=== PATIENT | female | born 1965 | race Caucasian/White ===

== ENCOUNTER → 2018-04-05 | Outpatient (CLI) | payer OTHER ==
[~2018-04-05] MED LIST: HYDROCODON-ACE1 EAC7 PO; LORTAB 5 MG/5001 TAB PO; LOVENOX SQ; NOHOMEMEDICATIONS; PERCOCET 5-3251 EACH PO; PHENERGAN 25 MG25 MG PO; PHENERGAN25 MG RE; XANAX 0.5 MG0.5 M1 PO
== END ==
LOC: ULTRA 08:22
DX: N28.89 Other specified disorders of kidney and ureter (principal); Z85.528 Personal history of other malignant neoplasm of kidney